=== PATIENT | male | born 1980 | race Two or more races ===

== ENCOUNTER 2020-12-18 10:36 | Emergency (ER) | payer MEDICAID ==
[~2020-12-18] VITALS: Ht 167.6 cm; Wt 59.0 kg
[2020-12-18] MEDS ORDERED: ONDANSETRON ODT 4 MG TAB PO ONE (11:15)
[2020-12-18] MEDS ORDERED: PANTOPRAZOLE 40 MG TAB PO ONE (11:15)
[2020-12-18 12:39] LABS: Basophils # (auto) 0.1 10 ^3/uL (0-0.2); Basophils % (auto) 0.6 % (0.0-2.0); Eosinophils # (auto) 0.1 10 ^3/uL (0-0.8); Eosinophils % (auto) 0.4 % (0.0-7.0); Hematocrit 39.8 % (41.0-53.0); Hemoglobin 13.6 g/dL (13.5-17.5); Lymphocytes # (auto) 2.1 10 ^3/uL (0.4-5.4); Lymphocytes % (auto) 12.2 % (10.0-50.0); Mean Corpuscular Hemoglobin 30.1 pg (28.0-32.0); Mean Corpuscular Hgb Conc. 34.2 g/dL (32.0-36.0); Monocytes # (auto) 2.1 10 ^3/uL (0-1.3); Monocytes % (auto) 12.3 % (0.0-12.0); Neutrophils # (auto) 12.9 10 ^3/uL (1.6-8.6); Neutrophils % (auto) 74.5 % (37.0-80.0); Red Blood Cells 4.52 10^6/uL (4.5-5.90); Red Cell Distribution Width 12.8 % (11.8-14.3); White Blood Cell 17.3 10^3/uL (4.4-10.8)
[2020-12-18 12:55] LABS: Albumin 3.4 g/dL (3.4-5.0); Calcium 8.7 mg/dL (8.5-10.1); Potassium 3.5 mmol/L (3.5-5.1)
[2020-12-18 13:00] LABS: BUN/Creatinine Ratio 12.2; Bilirubin, Total 0.6 mg/dL (0.2-1.0); Total Protein 6.5 g/dL (6.4-8.2)
[2020-12-18 14:15] VITALS: BP 131/88
== END 2020-12-18 14:49 | disposition home or self-care (01) ==
LOC: ER 10:36
DX: K29.70 Gastritis, unspecified, without bleeding (principal); R11.2 Nausea with vomiting, unspecified; F17.210 Nicotine dependence, cigarettes, uncomplicated; Z88.1 Allergy status to other antibiotic agents
CPT/HCPCS: 36415; 80053; 83690; 85025; 99283; Q0162